=== PATIENT | male | born 1975 | race African-American/Black ===

== ENCOUNTER 2017-02-09 13:31 | Emergency (ER) | payer MEDICAID ==
[~2017-02-09] VITALS: Ht 175.3 cm; Wt 122.5 kg
[2017-02-09 13:38] VITALS: BP 126/75
[2017-02-09] MEDS ORDERED: ORE25 PO (13:50)
[2017-02-09] MEDS ORDERED: ATOR40TA PO (13:50)
[2017-02-09] MEDS ORDERED: LISI-420 PO (13:50)
[2017-02-09] MEDS ORDERED: METF1000 PO (13:50)
--- NOTE | 2017-02-09 13:51 | NUR ---
PT TO X-RAY VIA WC
--- NOTE | 2017-02-09 13:59 | NUR ---
Patient back from XRAY taken to bed 06 via wheelchair per tech.
--- NOTE | 2017-02-09 14:00 | NUR ---
PATIENT PRESENTS TO ED WITH C/O SWELLING PAIN RIGHT GREAT TOE S/P KICKING A DOOR X 3 DAYS AGO;TENDER ;HX OF DM, HTN, HYPERLIPIDEMIA .DENIES N/V/D; SKIN IS PINK/WARM/DRY; AAOX4 WITH EVEN AND STEADY GAIT; LUNGS CLEAR BL; HR EVEN AND REGULAR; PT DENIES ANY FEVER, CP, SOB, OR COUGH AT THIS TIME; PATIENT STATES PAIN OF 10/10 AT THIS TIME;PATIENT POSITIONED FOR COMFORT; HOB ELEVATED; BEDRAILS UP X2; BED DOWN. ER MD MADE AWARE OF PT STATUS.
[2017-02-09] MEDS ORDERED: KETOROLAC 60 MG/2 ML VIAL IM ONE (14:50)
[2017-02-09] MEDS ORDERED: IBUPROFEN 800 MG TAB PO ONE (14:55)
[2017-02-09 15:18] VITALS: BP 125/74
--- NOTE | 2017-02-09 15:24 | NUR ---
Patient discharged with v/s stable. Written and verbal after care instructions given and explained. Patient alert, oriented and verbalized understanding of instructions. Ambulatory with steady gait. All questions addressed prior to discharge. ID band removed. Patient advised to follow up with PMD. Rx of TRAMADOLA ND COLCHICINE given. Patient educated on indication of medication including possible reaction and side effects. Opportunity to ask questions provided and answered.
== END 2017-02-09 15:24 | disposition home or self-care (01) ==
LOC: MED 13:31
DX: M10.9 Gout, unspecified (principal); I10 Essential (primary) hypertension; E11.9 Type 2 diabetes mellitus without complications
CPT/HCPCS: 36415; 73630; 84550; 99285; J1885

== ENCOUNTER 2021-02-13 10:44 | Emergency (ER) | payer MEDICAID ==
[~2021-02-13] VITALS: Ht 175.3 cm; Wt 127.0 kg
[~2021-02-13 10:44] MED LIST: ATOR40TA PO; HYDR-4004 PO; LISI-487 PO; METF1000 PO
[2021-02-13 10:56] VITALS: BP 125/87
[2021-02-13] MEDS ORDERED: HYDR25CA10 PO (13:22)
[2021-02-13] MEDS ORDERED: TRAZ-343 PO (13:22)
[2021-02-13 13:43] VITALS: BP 137/78
--- NOTE | 2021-02-13 13:43 | NUR ---
Patient assessed, treated, and discharged with v/s stable by Dr Romero. Written and verbal after care instructions about depression screening, adjustment disorder given and explained. Patient alert, oriented and verbalized understanding of instructions. Ambulatory with steady gait. All questions addressed prior to discharge. ID band removed. Patient advised to follow up with PMD. Rx of trazadone, hydroxyzine given. Patient educated on indication of medication including possible reaction and side effects. Opportunity to ask questions provided and answered.
--- NOTE | 2021-02-13 13:43 | NUR ---
Note nikosivan in EDM - 02/13/21 at 1344 by SOUMYA Patient discharged with v/s stable. Written and verbal after care instructions about depression screening, adjustment disorder given and explained. Patient alert, oriented and verbalized understanding of instructions. Ambulatory with steady gait. All questions addressed prior to discharge. ID band removed. Patient advised to follow up with PMD. Rx of trazadone, hydroxyzine given. Patient educated on indication of medication including possible reaction and side effects. Opportunity to ask questions provided and answered.
== END 2021-02-13 13:43 | disposition home or self-care (01) ==
LOC: MED 10:44
DX: F32.9 Major depressive disorder, single episode, unspecified (principal); G47.00 Insomnia, unspecified; F41.9 Anxiety disorder, unspecified; E11.9 Type 2 diabetes mellitus without complications; I10 Essential (primary) hypertension
CPT/HCPCS: 99283